=== PATIENT | male | born 1950 ===

== ENCOUNTER 2017-11-29 16:17 | Inpatient (IN) | payer MEDICAID, MEDICARE ==
[2017-11-29] MEDS ORDERED: Magnesium Hydroxide LIQ* 30 ML UDC PO PRN (16:39)
--- NOTE | 2017-11-29 20:51 | HP ---
HISTORY AND PHYSICAL: DATE OF ADMISSION: 11/29/17 PRIMARY CARE PROVIDER: Unknown. CHIEF COMPLAINT: Weakness and altered mental status. HISTORY OF PRESENT ILLNESS: Mr. Dunaway is a 67-year-old male, who has a history of traumatic brain injury, hypertension, seizure disorder, and sleep apnea, who presented numerous times to the [facility] for complaints of weakness and more difficult time walking than usual. He was requiring 1 to 2 people to get out of bed to the chair. The patient during one of the ER visits underwent CT scan of the brain, which did not reveal any acute findings. The patient had a urinalysis sent that was negative. He ultimately was brought back to the emergency room due to concern for persistent weakness. Additionally , new information obtained revealed that the patient had been possibly staring off, not being able to spell his own name which is abnormal, and not playing solitaire which he typically does. Because of these new findings, consultation with Dr. Garcia was done over the phone. He recommended that the patient get seen by Neurology and perhaps have an EEG. I was then contacted for transfer of the patient to [facility]. The patient has been accepted to a medical bed for evaluation of his weakness and altered mental status. PAST MEDICAL HISTORY: 1. History of traumatic brain injury. 2. Hypertension. 3. Sleep apnea. 4. Seizure disorder. PAST SURGICAL HISTORY: 1. History of craniotomy. 2. Gastric tube. 3. ORIF, left hip. MEDICATIONS: Prior to admission: 1. Oxybutynin 10 mg p.o. daily. 2. Lisinopril 5 mg p.o. daily. 3. Trazodone 150 mg p.o. q.h.s. 4. MiraLAX 17 g p.o. daily. 5. Fluoxetine 40 mg p.o. daily. 6. Keppra 750 mg p.o. twice daily. 7. Myrbetriq 25 mg p.o. daily. 8. Flomax 0.4 mg p.o. daily. 9. Aspirin 325 mg p.o. daily. 10. Milk of magnesia 30 mL p.o. daily p.r.n. constipation. 11. Risperdal 0.5 mg p.o. twice daily. 12. Simvastatin 20 mg p.o. daily. 13. Calcium plus D 1 tab p.o. daily. ALLERGIES: None. FAMILY HISTORY: Unobtainable. SOCIAL HISTORY: The patient lives in an apartment with 24-hour care. He is . He does not smoke. He does not drink alcohol. REVIEW OF SYSTEMS: A complete 11-system review of systems is obtained. The pertinent positives and negatives are as per HPI. The patient otherwise states no to all questions. PHYSICAL EXAMINATION GENERAL: The patient is a well-developed, middle-aged male seen sitting up in the bed, in no acute distress. VITAL SIGNS: Pending. HEENT: Pupils are equal and round. Extraocular muscles are intact. Oropharynx is clear. Oral mucosa is moist. The patient wears upper dentures. NECK: There is no submandibular, cervical, or supraclavicular adenopathy. Thyroid is not enlarged and no thyroid nodules are noted. PULMONARY: Lungs are clear to auscultation bilaterally. CARDIAC: Normal S1, S2. Regular rate and rhythm. I did not appreciate any murmurs. ABDOMEN: Bowel sounds are present. Abdomen is soft, nontender, nondistended. MUSCULOSKELETAL: There is no cyanosis or clubbing of the digits. There is full active range of motion of all 4 extremities. PSYCH: The patient is alert. He is not oriented. He essentially answers all questions with the word no. SKIN: Warm and dry. There are no rashes. There are scattered bruises noted. DIAGNOSTIC STUDIES/LAB DATA: Labs from 11/29/17 at [facility]: WBC 6.6, hemoglobin 15.6, hematocrit 43.9, platelets 194. Glucose 109 , BUN 17, creatinine 0.9, sodium 141, potassium 4.4, chloride 108, CO2 of 25, ammonia 14. TSH 1.77. Urinalysis from 11/26/17 is negative for signs of infection, but does reveal specific gravity of greater than 1.030. ASSESSMENT AND PLAN: Mr. Terence Dunaway is a 67-year-old male who was admitted to [facility] with complaints of weakness, and I subsequently obtained information from his aide at home that he had not been acting himself and that he was not playing solitaire like he normally does. He appeared to be staring off into space and could not spell his name which he normally can. The patient was transferred to [facility] for Neurology evaluation. 1. Weakness and altered mental status. This is our first interaction with Mr. Dunaway. His baseline mental status and abilities are unknown to me. He, at this point, appears to be alert. He answers most questions with the word no. He will be observed with neuro checks every 4 hours. He will have seizure precautions and an EEG will be obtained tomorrow. Neurology consultation will be requested for now. He will be maintained on all of his home medications. 2. Hypertension. We will continue the patient on his usual dose of lisinopril. We will adjust his antihypertensive regimen as needed. 3. History of sleep apnea. The patient is not compliant with CPAP. 4. Seizure disorder. The patient will continue on his usual dose of Keppra. 5. Traumatic brain injury. The patient has 24-hour daycare at home. 6. DVT prophylaxis. According to the Adult Thrombosis Prophylaxis Risk Factor Assessment Guide, the patient has a total risk factor score of 3 making him high risk. He will be placed on heparin 5000 units subcutaneous q.8 hours. 7. Code status is full. TIME SPENT: Forty-five minutes was spent admitting this patient, of which greater than half was spent reviewing records from [facility]. [id number]/[facility] #: [id number] GUILLERMO
[2017-11-29] MEDS ORDERED: levETIRAcetam LIQ* 500 MG/5 ML UDC PO SCH (21:00)
[2017-11-29] MEDS ORDERED: traZODone TAB* 50 MG TAB PO SCH (21:00)
[2017-11-29] MEDS: Heparin VIAL(*) 5000 UNITS/ML VIAL (FIVE THOUSAND) SUBCUT SCH (21:09)
[2017-11-29] MEDS: Atorvastatin* 10 MG TAB PO SCH (21:10)
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
[2017-11-30] MEDS: Heparin VIAL(*) 5000 UNITS/ML VIAL (FIVE THOUSAND) SUBCUT SCH ×3 (05:35→22:31)
[2017-11-30] MEDS: Polyethylene Glycol 3350* 17 GM PACKET PO SCH (08:45)
[2017-11-30] MEDS: Oxybutynin XL TAB* 5 MG PO SCH (08:46)
[2017-11-30] MEDS: Aspirin EC TAB* 325 MG PO SCH (08:47)
[2017-11-30] MEDS: FLUoxetine CAP* 20 MG PO SCH (08:47)
[2017-11-30] MEDS: Calcium/Vitamin D TAB 250/125* TAB PO SCH (08:50)
[2017-11-30] MEDS: Tamsulosin CAP* 0.4 MG PO SCH (08:51)
[2017-11-30] MEDS: Lisinopril TAB* 5 MG PO SCH (08:52)
--- NOTE | 2017-11-30 09:00 | PN ---
Subjective Date of Service: 11/30/17 Interval History: Pt is feeling well. He denies any pain. He denies SOB. He states he would like to get up to walk today. Objective Active Medications: Aspirin (Ecotrin Ec Tab*) 325 mg PO DAILY [facility] Last Admin: 11/30/17 08:47 Dose: 325 mg Atorvastatin Calcium (Lipitor*) 10 mg PO BEDTIME [facility] Last Admin: 11/29/17 21:10 Dose: 10 mg Calcium/Vitamin D (Oscal D Tab 250/125*) 1 tab PO DAILY [facility] Last Admin: 11/30/17 08:50 Dose: 1 tab Fluoxetine HCl (Prozac Cap*) 40 mg PO DAILY [facility] Last Admin: 11/30/17 08:47 Dose: 40 mg Heparin Sodium (Porcine) (Heparin Vial(*)) 5,000 units SUBCUT Q8HR [facility] Last Admin: 11/30/17 05:35 Dose: 5,000 units Levetiracetam 750 mg/ Sodium (Chloride) 107.5 mls @ 440 mls/hr IVPB Q8HR [facility] Lisinopril (Prinivil Tab*) 5 mg PO DAILY [facility] Last Admin: 11/30/17 08:52 Dose: 5 mg Lorazepam (Ativan Inj*) 1 mg IV PUSH UC ONCE ONE Stop: 11/30/17 09:16 Magnesium Hydroxide (Milk Of Magnedgar Liq*) 30 ml PO DAILY PRN PRN Reason: CONSTIPATION Oxybutynin Chloride (Ditropan Xl Tab*) 10 mg PO DAILY [facility] Last Admin: 11/30/17 08:46 Dose: 10 mg Polyethylene Glycol/Electrolytes (Miralax*) 17 gm PO DAILY [facility] Last Admin: 11/30/17 08:45 Dose: 17 gm Risperidone (Risperdal) 0.5 mg PO BID [facility] Last Admin: 11/30/17 08:53 Dose: 0.5 mg Tamsulosin HCl (Flomax Cap*) 0.4 mg PO DAILY [facility] Last Admin: 11/30/17 08:51 Dose: 0.4 mg Vital Signs - 8 hr 11/30/17 03:22 Temperature 98.5 F Pulse Rate 80 Respiratory 20 Rate Blood Pressure 132/82 (mmHg) O2 Sat by Pulse 97 Oximetry Oxygen Devices in Use Now: None Appearance: Middle aged male sitting up in bed, NAD Eyes: No Scleral Icterus Ears/Nose/Mouth/Throat: Mucous Membranes Moist Respiratory: Symmetrical Chest Expansion and Respiratory Effort, Clear to Auscultation Cardiovascular: NL Sounds; No Murmurs; No JVD, RRR, No Edema Abdominal: NL Sounds; No Tenderness; No Distention Extremities: No Clubbing, Cyanosis Skin: No Nodules or Sclerosis Neurological: Alert and Oriented x 3 Assess/Plan/Problems-Billing Mr Dunaway is a 67 yo M who has a h/o TBI, seizure disorder and HTN who presented initially to [facility] with c/o weakness and was subsequently transferred to [facility] for neurology evaluation. - Patient Problems (1) Altered mental status Current Visit: Yes Status: Acute Code(s): R41.82 - ALTERED MENTAL STATUS, UNSPECIFIED SNOMED Code(s): 253622611 Comment: Pt reportedly is able to ambulate with a walker, write and play solitare, he has not been doing these activities. EEG done yesterday was abnormal but did not clearly show seizure acitivity. Dr. Garcia has asked that a repeat EEG be obtained. Will continue to hold trazodone and check B12 and trough keppra level (results pending). May need MRI. (2) Seizure disorder Current Visit: Yes Status: Acute Code(s): G40.909 - EPILEPSY, UNSP, NOT INTRACTABLE, WITHOUT STATUS EPILEPTICUS SNOMED Code(s): 290440134 Comment: Continue keppra at current dose for now. Await further recommendations from Dr. Garcia. (3) HTN (hypertension) Current Visit: Yes Status: Acute Code(s): I10 - ESSENTIAL (PRIMARY) HYPERTENSION SNOMED Code(s): 12631940 Comment: BP under good control. Continue lisinopril. (4) DVT prophylaxis Current Visit: Yes Status: Acute Code(s): DQE7020 - SNOMED Code(s): 357355813 Comment: SQ heparin (5) Full code status Current Visit: Yes Status: Acute Code(s): Z78.9 - OTHER SPECIFIED HEALTH STATUS SNOMED Code(s): 101529865
[2017-11-30] MEDS ORDERED: LORazepam INJ* 2 MG/ML 1 ML VIAL IV PUSH ONE (09:15)
[2017-11-30] MEDS: levETIRAcetam IV* 750 MG in NS 0.9% 100 ML* 100 ML IVPB SCH ×2 (10:07→17:00)
--- NOTE | 2017-11-30 17:56 | CONS ---
NEUROLOGY FOLLOWUP NOTE: DATE OF FOLLOWUP: 11/30/17 LOCATION: He is an inpatient in room 439. HOSPITALIST: Roseann Cao DO. CHIEF COMPLAINT: Diminished responsiveness and functional abilities. INTERVAL HISTORY: Since yesterday, Terence had an EEG, which revealed a lot of muscle artifact, but also some central spiking activity, which is quite frequent. Today, I had the EEG reset and he was given 1 mg of Ativan after it had been running. The muscle activity subsided and the spiky activity in the central region resolved. He fell asleep. Currently, he is awake. He did not eat any lunch. He says he feels fine. I asked him if he had been up and walking and he said yes, but he has not been according to the nursing notes. I asked him what his name was and to spell it and he immediately was able to do so , which was one of the historical items that led to his presentation from his apartment where he lives. There is no new laboratory data to review. He has a levetiracetam level and vitamin B12 level pending. MEDICATIONS: Reviewed and he is on: 1. Atorvastatin 10 mg p.o. q. day. 2. Aspirin 81 mg p.o. q. day. 3. Fluoxetine 40 mg p.o. q. day. 4. Heparin 5000 units subcutaneous q.8 hours. 5. Keppra 750 mg IV q.8 hours. 6. Lisinopril 5 mg p.o. q. day. 7. Oxybutynin XL 10 mg p.o. q. day. 8. Risperidone 0.5 mg p.o. b.i.d. 9. Flomax 0.4 mg p.o. q. day. 10. Trazodone was discontinued yesterday. 11. Keppra was switched from oral to IV and the dose increased. PHYSICAL EXAM: He is fairly alert and well hydrated. Temperature 98.5, blood pressure running about 120 to 130 systolic over 70 to 80 diastolic, heart rate is in the 80s and regular. Respiratory rate 20 and oxygen saturation is 96% on room air. Neck is supple. Oral mucosa is moist. Neurologically, pupils react equally from 3.5 to 2.5 mm. Eye movements are full, but there is impersistence of gaze. He responds to visual threat bilaterally. He has slight increased muscle tone in all limbs, but normal strength. He has a little bit of tremulousness in both hands. There is no myoclonus. He only speaks when spoken to. He answers in simple responses. IMPRESSION AND PLAN: Impression is that of probable subclinical ictal activities leading to his decompensation. He seems to be better at least in terms of his ability to spell, but I need further feedback from his caregivers in [place]. Hopefully, there will be somebody in this afternoon to discuss his case. Meanwhile, I am going to continue intravenous Keppra at the current dose and repeat his EEG tomorrow. [id number]/[facility] #: [id number] [facility]
[2017-11-30] MEDS: Atorvastatin* 10 MG TAB PO SCH (22:31)
[2017-12-01] MEDS: levETIRAcetam IV* 750 MG in NS 0.9% 100 ML* 100 ML IVPB SCH ×2 (00:27→09:09)
[2017-12-01] MEDS: Heparin VIAL(*) 5000 UNITS/ML VIAL (FIVE THOUSAND) SUBCUT SCH ×3 (05:08→21:32)
[2017-12-01] MEDS: Lisinopril TAB* 5 MG PO SCH (09:09)
[2017-12-01] MEDS: Polyethylene Glycol 3350* 17 GM PACKET PO SCH (09:10)
[2017-12-01] MEDS: Aspirin EC TAB* 325 MG PO SCH (09:10)
[2017-12-01] MEDS: Tamsulosin CAP* 0.4 MG PO SCH (09:10)
[2017-12-01] MEDS: FLUoxetine CAP* 20 MG PO SCH (09:10)
[2017-12-01] MEDS: Calcium/Vitamin D TAB 250/125* TAB PO SCH (09:11)
[2017-12-01] MEDS: Oxybutynin XL TAB* 5 MG PO SCH (09:11)
[2017-12-01] MEDS ORDERED: Artificial Tears* 15 ML BTL BOTH EYES PRN (14:25)
[2017-12-01] MEDS ORDERED: Carboxymethylcellulos 1% OPTH* 1 DROP AMP BOTH EYES PRN (14:25)
--- NOTE | 2017-12-01 14:39 | PN ---
Subjective Date of Service: 12/01/17 Interval History: Pt is feeling ok. His caregivers think he is still far from his baseline. He has been noticed to be holding his head and rubbing his eyes. Pt denies pain and SOB. He states he ate lunch. Objective Active Medications: Aspirin (Ecotrin Ec Tab*) 325 mg PO DAILY [facility] Last Admin: 12/01/17 09:10 Dose: 325 mg Atorvastatin Calcium (Lipitor*) 10 mg PO BEDTIME [facility] Last Admin: 11/30/17 22:31 Dose: 10 mg Calcium/Vitamin D (Oscal D Tab 250/125*) 1 tab PO DAILY [facility] Last Admin: 12/01/17 09:11 Dose: 1 tab Fluoxetine HCl (Prozac Cap*) 40 mg PO DAILY [facility] Last Admin: 12/01/17 09:10 Dose: 40 mg Heparin Sodium (Porcine) (Heparin Vial(*)) 5,000 units SUBCUT Q8HR [facility] Last Admin: 12/01/17 05:08 Dose: 5,000 units Levetiracetam 750 mg/ Sodium (Chloride) 107.5 mls @ 440 mls/hr IVPB Q8H [facility] Last Admin: 12/01/17 09:09 Dose: 440 mls/hr Lisinopril (Prinivil Tab*) 5 mg PO DAILY [facility] Last Admin: 12/01/17 09:09 Dose: 5 mg Magnesium Hydroxide (Milk Of Magnesia Liq*) 30 ml PO DAILY PRN PRN Reason: CONSTIPATION Oxybutynin Chloride (Ditropan Xl Tab*) 10 mg PO DAILY [facility] Last Admin: 12/01/17 09:11 Dose: 10 mg Polyethylene Glycol/Electrolytes (Miralax*) 17 gm PO DAILY [facility] Last Admin: 12/01/17 09:10 Dose: 17 gm Polyvinyl Alcohol (Polyvinyl Alcohol 1.4% Opth*) 1 drop BOTH EYES Q2H PRN PRN Reason: DRY EYE Risperidone (Risperdal) 0.5 mg PO BID [facility] Last Admin: 12/01/17 09:11 Dose: 0.5 mg Tamsulosin HCl (Flomax Cap*) 0.4 mg PO DAILY [facility] Last Admin: 12/01/17 09:10 Dose: 0.4 mg Vital Signs - 8 hr 12/01/17 12/01/17 12/01/17 07:51 08:00 11:59 Temperature 98.4 F 97.5 F Pulse Rate 68 84 Respiratory 20 20 18 Rate Blood Pressure 119/82 104/66 (mmHg) O2 Sat by Pulse 95 96 Oximetry Oxygen Devices in Use Now: None Appearance: Middle aged male sitting in a chair, NAD Eyes: No Scleral Icterus, - - conjunctiva appear irritated Ears/Nose/Mouth/Throat: Mucous Membranes Moist Respiratory: Symmetrical Chest Expansion and Respiratory Effort, Clear to Auscultation Cardiovascular: NL Sounds; No Murmurs; No JVD, RRR, No Edema Abdominal: NL Sounds; No Tenderness; No Distention Extremities: No Clubbing, Cyanosis Skin: No Nodules or Sclerosis Neurological: Alert and Oriented x 3 Assess/Plan/Problems-Billing Mr Dunaway is a 67 yo M who has a h/o TBI, seizure disorder and HTN who presented initially to [facility] with c/o weakness and was subsequently transferred to [facility] for neurology evaluation. - Patient Problems (1) Altered mental status Current Visit: Yes Status: Acute Code(s): R41.82 - ALTERED MENTAL STATUS, UNSPECIFIED SNOMED Code(s): 534501478 Comment: Pt still far from baseline. Repeat EEG yesterday improved with administration of ativan. ? subclinical seizures. Continue keppra 750mg IV BID. Await further recommendations from Dr. Garcia. (2) Seizure disorder Current Visit: Yes Status: Acute Code(s): G40.909 - EPILEPSY, UNSP, NOT INTRACTABLE, WITHOUT STATUS EPILEPTICUS SNOMED Code(s): 611193063 Comment: Continue keppra at current dose for now. Await further recommendations from Dr. Garcia. (3) HTN (hypertension) Current Visit: Yes Status: Acute Code(s): I10 - ESSENTIAL (PRIMARY) HYPERTENSION SNOMED Code(s): 33190113 Comment: BP under good control. Continue lisinopril. (4) DVT prophylaxis Current Visit: Yes Status: Acute Code(s): SUA9456 - SNOMED Code(s): 533377583 Comment: SQ heparin (5) Full code status Current Visit: Yes Status: Acute Code(s): Z78.9 - OTHER SPECIFIED HEALTH STATUS SNOMED Code(s): 497620411
[2017-12-01] MEDS: levETIRAcetam IV* 1,000 MG in NS 0.9% 100 ML* 100 ML IVPB SCH (16:51)
[2017-12-01] MEDS: Atorvastatin* 10 MG TAB PO SCH (21:32)
--- NOTE | 2017-12-01 21:56 | CONS ---
NEUROLOGY FOLLOWUP NOTE: DATE OF FOLLOWUP: 12/01/17 LOCATION: He is an inpatient in room 411. HOSPITALIST: Dr. Cao. CHIEF COMPLAINT: Seizures, traumatic brain injury. INTERVAL HISTORY: Since yesterday, Terence has not had any clinical seizures but continues to fluctuate in his ability to function. He was able to walk with assistance according to his nurse earlier including a gait belt and a walker. At another time, he got up from the chair and walked to his bed on his own to get into it. He has been variable in his ability to respond cognitively. I spoke with nurses who visited from [place] who take care of him in his supervised apartment setting. They say he is cognitively not near his baseline that he was about a week or 2 weeks ago. MEDICATIONS: Reviewed and he remains on: 1. Levetiracetam 750 mg IV q.8 hours. 2. Lisinopril 5 mg p.o. daily. 3. Risperdal 0.5 mg p.o. b.i.d. 4. Flomax 0.4 mg p.o. daily. 5. Oxybutynin XL 10 mg p.o. daily. 6. Heparin subcutaneous 5000 units q.8 hours. 7. Fluoxetine 40 mg p.o. daily. 8. Atorvastatin 10 mg p.o. q.h.s. 9. Aspirin 325 mg p.o. daily. PHYSICAL EXAMINATION: On exam, he remains afebrile, blood pressure 104/66, heart rate in the 80s, respiratory rate 18, oxygen saturation 96% on room air. He is alert and responds with a slight delay. When asked how he feels, he says "how do you want me to feel." He is oriented to person and place, although earlier he thought he was in [place]. He continues to have a little bit of myoclonus in the fingers. I did not attempt to walk him. LABORATORY DATA: Notable for a levetiracetam level of 13.7 on 11/30/17 at 7:15 in the morning. Vitamin B12 level yesterday was 445. 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 I am going to repeat his EEG tomorrow and increase his Keppra to 1000 mg q.8 hours as of now. If his EEG still shows epileptiform activity tomorrow, I may add Vimpat. [id number]/[facility] #: [id number] MTDD
[2017-12-02] MEDS: levETIRAcetam IV* 1,000 MG in NS 0.9% 100 ML* 100 ML IVPB SCH ×2 (00:12→08:27)
--- NOTE | 2017-12-02 05:08 | EEG ---
ELECTROENCEPHALOGRAM: DATE OF STUDY: 11/29/17 REFERRING PHYSICIAN: Dr. Garcia. LOCATION: He is an inpatient in room 439. CLINICAL HISTORY: History of bilateral subdural hematomas and traumatic brain injury. The patient has had a marked change in ability to function for about a week prior to this recording. MEDICATIONS: Include Keppra, risperidone, trazodone, fluoxetine, lisinopril, oxybutynin, tamsulosin. REPORT: This 16-channel EEG is remarkable for background rhythms consisting of central mixed theta and alpha activity. There is intermingled spikes seen centrally through most of the recording. Bitemporal and parasagittal regions are very poorly seen because of continuous muscle artifact. The patient does not seem to be able to relax during the recording. Activation procedures are not attempted. There are no evidence of sleep stages. CLINICAL IMPRESSION: Abnormal EEG, which is a very limited study due to excessive muscle artifact. Central rhythms are slow and disorganized with the awake state and there is a frequent spike discharges suggestive of frequent epileptiform discharges. [id number]/[facility] #: [id number] GUILLERMO
[2017-12-02] MEDS: Heparin VIAL(*) 5000 UNITS/ML VIAL (FIVE THOUSAND) SUBCUT SCH ×3 (05:50→21:25)
[2017-12-02] MEDS: Aspirin EC TAB* 325 MG PO SCH (08:27)
[2017-12-02] MEDS: FLUoxetine CAP* 20 MG PO SCH (08:27)
[2017-12-02] MEDS: Lisinopril TAB* 5 MG PO SCH (08:27)
[2017-12-02] MEDS: Polyethylene Glycol 3350* 17 GM PACKET PO SCH (08:27)
[2017-12-02] MEDS: Tamsulosin CAP* 0.4 MG PO SCH (08:28)
[2017-12-02] MEDS: Calcium/Vitamin D TAB 250/125* TAB PO SCH (08:28)
[2017-12-02] MEDS: Oxybutynin XL TAB* 5 MG PO SCH (08:36)
--- NOTE | 2017-12-02 17:11 | PN ---
Hospitalist Progress Note Date of Service: 12/02/17 I spoke with Terence's Ximena and updated her on everything that has happened this admission. She is appreciative of the update. She is open to him going to STR if deemed reasonable by PT.
--- NOTE | 2017-12-02 18:10 | PN ---
Subjective Date of Service: 12/02/17 Interval History: No overnight events. Sleepy this mrrayshawn. No complaints. He knows he is in the hospital but doesn't remember why. Objective Active Medications: Aspirin (Ecotrin Ec Tab*) 325 mg PO DAILY [facility] Last Admin: 12/02/17 08:27 Dose: 325 mg Atorvastatin Calcium (Lipitor*) 10 mg PO BEDTIME [facility] Last Admin: 12/01/17 21:32 Dose: 10 mg Calcium/Vitamin D (Oscal D Tab 250/125*) 1 tab PO DAILY [facility] Last Admin: 12/02/17 08:28 Dose: 1 tab Carboxymethylcellulose Sodium (Celluvisc 1% Opth*) 1 drop BOTH EYES Q2H PRN PRN Reason: DRY EYES Fluoxetine HCl (Prozac Cap*) 40 mg PO DAILY [facility] Last Admin: 12/02/17 08:27 Dose: 40 mg Heparin Sodium (Porcine) (Heparin Vial(*)) 5,000 units SUBCUT Q8HR [facility] Last Admin: 12/02/17 15:46 Dose: 5,000 units Levetiracetam (Keppra Tab*) 1,500 mg PO BID [facility] Lisinopril (Prinivil Tab*) 5 mg PO DAILY [facility] Last Admin: 12/02/17 08:27 Dose: 5 mg Magnesium Hydroxide (Milk Of Magnesia Liq*) 30 ml PO DAILY PRN PRN Reason: CONSTIPATION Oxybutynin Chloride (Ditropan Xl Tab*) 10 mg PO DAILY [facility] Last Admin: 12/02/17 08:36 Dose: 10 mg Polyethylene Glycol/Electrolytes (Miralax*) 17 gm PO DAILY [facility] Last Admin: 12/02/17 08:27 Dose: 17 gm Tamsulosin HCl (Flomax Cap*) 0.4 mg PO DAILY [facility] Last Admin: 12/02/17 08:28 Dose: 0.4 mg Vital Signs - 8 hr 12/02/17 12/02/17 12/02/17 11:36 15:13 15:44 Temperature 98.3 F 98.1 F Pulse Rate 65 76 Respiratory 24 20 Rate Blood Pressure 125/78 84/51 110/62 (mmHg) O2 Sat by Pulse 94 97 Oximetry Oxygen Devices in Use Now: None Appearance: alert, no distress, sleepy Eyes: No Scleral Icterus Ears/Nose/Mouth/Throat: NL Teeth, Lips, Gums Neck: NL Appearance and Movements; NL JVP Respiratory: Symmetrical Chest Expansion and Respiratory Effort, Clear to Auscultation Cardiovascular: NL Sounds; No Murmurs; No JVD, RRR Abdominal: NL Sounds; No Tenderness; No Distention Lymphatic: No Cervical Adenopathy Extremities: No Edema Skin: No Rash or Ulcers Neurological: - - oriented x 2 thinks it is 1981 Assess/Plan/Problems-Billing Mr Dunaway is a 67 yo M who has a h/o TBI, seizure disorder and HTN who presented initially to [facility] with c/o weakness and was subsequently transferred to [facility] for neurology evaluation. - Patient Problems (1) Seizure disorder Current Visit: Yes Status: Acute Code(s): G40.909 - EPILEPSY, UNSP, NOT INTRACTABLE, WITHOUT STATUS EPILEPTICUS SNOMED Code(s): 700107633 Comment: Repeat EEG this morning reportedly improved Case discussed with Dr. Radha may to PO today PT consult for possible rehab (2) Altered mental status Current Visit: Yes Status: Acute Code(s): R41.82 - ALTERED MENTAL STATUS, UNSPECIFIED SNOMED Code(s): 071922532 Comment: Likely related to postictal state from having subclinical seizures for some time Seems to be improving (3) Full code status Current Visit: Yes Status: Acute Code(s): Z78.9 - OTHER SPECIFIED HEALTH STATUS SNOMED Code(s): 043757130 (4) HTN (hypertension) Current Visit: Yes Status: Acute Code(s): I10 - ESSENTIAL (PRIMARY) HYPERTENSION SNOMED Code(s): 58817801 Comment: BP under good control. Continue lisinopril.
[2017-12-02] MEDS: levETIRAcetam TAB* 500 MG PO SCH (21:22)
[2017-12-02] MEDS: Atorvastatin* 10 MG TAB PO SCH (21:22)
--- NOTE | 2017-12-03 03:33 | EEG ---
ELECTROENCEPHALOGRAPHY: DATE OF STUDY: 12/01/17 LOCATION: He is an inpatient in room 411. REFERRING PHYSICIAN: Dr. Garcia. CLINICAL PROBLEM: Traumatic brain injury, epilepsy. MEDICATIONS: Include: 1. Keppra. 2. Atorvastatin. 3. Aspirin. 4. Fluoxetine. 5. Oxybutynin. REPORT: This 16-channel EEG is remarkable for background rhythms consisting of diffuse slow voltage fast rhythms particularly bifrontally and bitemporally. Rhythms in the theta and alpha range are seen parasagittally and centrally. The patient is clinically awake, but drowsy. Activation procedures are not attempted. The patient may drowse with an increase in central and bitemporal slowing, but stigmata of stage 2 sleep are not clearly seen. A very few central spikes noted, but no phase reversals or clearly formed epileptiform features. CLINICAL IMPRESSION: Abnormal EEG due to some disorganization of background rhythms. There are no epileptiform features to this recording and the frequent central spike seen in early recordings is no longer present. [id number]/[facility] #: [id number] M[facility] IMOGENE BASSETT HOSPITALJazmyn
[2017-12-03] MEDS: Heparin VIAL(*) 5000 UNITS/ML VIAL (FIVE THOUSAND) SUBCUT SCH ×3 (05:56→21:37)
--- NOTE | 2017-12-03 08:36 | PN ---
Subjective Date of Service: 12/03/17 Interval History: No overnight events noted by RN. When asked how he is feeling this morning, he says "how do you want me to feel?" He denies pain. He wants breakfast. Objective Active Medications: Aspirin (Ecotrin Ec Tab*) 325 mg PO DAILY [facility] Last Admin: 12/02/17 08:27 Dose: 325 mg Atorvastatin Calcium (Lipitor*) 10 mg PO BEDTIME [facility] Last Admin: 12/02/17 21:22 Dose: 10 mg Calcium/Vitamin D (Oscal D Tab 250/125*) 1 tab PO DAILY [facility] Last Admin: 12/02/17 08:28 Dose: 1 tab Carboxymethylcellulose Sodium (Celluvisc 1% Opth*) 1 drop BOTH EYES Q2H PRN PRN Reason: DRY EYES Fluoxetine HCl (Prozac Cap*) 40 mg PO DAILY [facility] Last Admin: 12/02/17 08:27 Dose: 40 mg Heparin Sodium (Porcine) (Heparin Vial(*)) 5,000 units SUBCUT Q8HR [facility] Last Admin: 12/03/17 05:56 Dose: 5,000 units Levetiracetam (Keppra Tab*) 1,500 mg PO BID [facility] Last Admin: 12/02/17 21:22 Dose: 1,500 mg Lisinopril (Prinivil Tab*) 5 mg PO DAILY [facility] Last Admin: 12/02/17 08:27 Dose: 5 mg Magnesium Hydroxide (Milk Of Magnesia Liq*) 30 ml PO DAILY PRN PRN Reason: CONSTIPATION Oxybutynin Chloride (Ditropan Xl Tab*) 10 mg PO DAILY [facility] Last Admin: 12/02/17 08:36 Dose: 10 mg Polyethylene Glycol/Electrolytes (Miralax*) 17 gm PO DAILY [facility] Last Admin: 12/02/17 08:27 Dose: 17 gm Tamsulosin HCl (Flomax Cap*) 0.4 mg PO DAILY [facility] Last Admin: 12/02/17 08:28 Dose: 0.4 mg Vital Signs - 8 hr 12/03/17 03:43 Temperature 98.4 F Pulse Rate 65 Respiratory 16 Rate Blood Pressure 133/61 (mmHg) O2 Sat by Pulse 98 Oximetry Oxygen Devices in Use Now: None Appearance: alert, sleepy, easily confused Eyes: No Scleral Icterus, - - conjunctivae injected Ears/Nose/Mouth/Throat: NL Teeth, Lips, Gums Neck: NL Appearance and Movements; NL JVP Respiratory: Symmetrical Chest Expansion and Respiratory Effort, Clear to Auscultation Cardiovascular: NL Sounds; No Murmurs; No JVD Abdominal: NL Sounds; No Tenderness; No Distention Lymphatic: No Cervical Adenopathy Extremities: No Edema Skin: No Rash or Ulcers Neurological: - - oriented to person and time, thinks he is in [place]. can count to 10 but cannot count backwards. follows simple commands but cannot follow complex commands. Assess/Plan/Problems-Billing Mr Dnuaway is a 67 yo M who has a h/o TBI, seizure disorder and HTN who presented initially to [facility] with c/o weakness and was subsequently transferred to [facility] for neurology evaluation. - Patient Problems (1) Seizure disorder Current Visit: Yes Status: Acute Code(s): G40.909 - EPILEPSY, UNSP, NOT INTRACTABLE, WITHOUT STATUS EPILEPTICUS SNOMED Code(s): 427585041 Comment: Repeat EEG yesterday reportedly improved Case discussed with Dr. Garcia Switched to PO keppra, tolerating well Awaiting PT consult for possible STR prior to returning to [facility] (2) Altered mental status Current Visit: Yes Status: Acute Code(s): R41.82 - ALTERED MENTAL STATUS, UNSPECIFIED SNOMED Code(s): 131571659 Comment: Likely related to postictal state from having subclinical seizures for some time Seems to be improving (3) Full code status Current Visit: Yes Status: Acute Code(s): Z78.9 - OTHER SPECIFIED HEALTH STATUS SNOMED Code(s): 860201812 (4) HTN (hypertension) Current Visit: Yes Status: Acute Code(s): I10 - ESSENTIAL (PRIMARY) HYPERTENSION SNOMED Code(s): 44526615 Comment: BP under good control. Continue lisinopril.
[2017-12-03] MEDS: levETIRAcetam TAB* 500 MG PO SCH ×2 (10:14→21:36)
[2017-12-03] MEDS: Oxybutynin XL TAB* 5 MG PO SCH (10:15)
[2017-12-03] MEDS: FLUoxetine CAP* 20 MG PO SCH (10:16)
[2017-12-03] MEDS: Aspirin EC TAB* 325 MG PO SCH (10:16)
[2017-12-03] MEDS: Lisinopril TAB* 5 MG PO SCH (10:16)
[2017-12-03] MEDS: Calcium/Vitamin D TAB 250/125* TAB PO SCH (10:17)
[2017-12-03] MEDS: Tamsulosin CAP* 0.4 MG PO SCH (10:20)
[2017-12-03] MEDS: Polyethylene Glycol 3350* 17 GM PACKET PO SCH (10:20)
--- NOTE | 2017-12-03 19:34 | PN ---
Progress Note - Progress Note Date of Service: 12/03/17 SOAP: Neurology progress note Date of service: 12/03/17 Subjective: The patient had no further seizures. His mental status has been improving. Objective: Vital Signs Temp Pulse Resp BP Pulse Ox 97.8 F 60 18 110/68 99 12/03/17 15:22 12/03/17 15:22 12/03/17 15:22 12/03/17 15:22 12/03/17 15:22 Current Medications Aspirin (Ecotrin Ec Tab*) 325 mg PO DAILY [facility] Last Admin: 12/03/17 10:16 Dose: 325 mg Atorvastatin Calcium (Lipitor*) 10 mg PO BEDTIME [facility] Last Admin: 12/02/17 21:22 Dose: 10 mg Calcium/Vitamin D (Oscal D Tab 250/125*) 1 tab PO DAILY [facility] Last Admin: 12/03/17 10:17 Dose: 1 tab Carboxymethylcellulose Sodium (Celluvisc 1% Opth*) 1 drop BOTH EYES Q2H PRN PRN Reason: DRY EYES Fluoxetine HCl (Prozac Cap*) 40 mg PO DAILY [facility] Last Admin: 12/03/17 10:16 Dose: 40 mg Heparin Sodium (Porcine) (Heparin Vial(*)) 5,000 units SUBCUT Q8HR [facility] Last Admin: 12/03/17 15:09 Dose: 5,000 units Levetiracetam (Keppra Tab*) 1,500 mg PO BID [facility] Last Admin: 12/03/17 10:14 Dose: 1,500 mg Lisinopril (Prinivil Tab*) 5 mg PO DAILY [facility] Last Admin: 12/03/17 10:16 Dose: 5 mg Magnesium Hydroxide (Milk Of Magnesia Liq*) 30 ml PO DAILY PRN PRN Reason: CONSTIPATION Oxybutynin Chloride (Ditropan Xl Tab*) 10 mg PO DAILY [facility] Last Admin: 12/03/17 10:15 Dose: 10 mg Polyethylene Glycol/Electrolytes (Miralax*) 17 gm PO DAILY [facility] Last Admin: 12/03/17 10:20 Dose: 17 gm Tamsulosin HCl (Flomax Cap*) 0.4 mg PO DAILY [facility] Last Admin: 12/03/17 10:20 Dose: 0.4 mg Laboratory Last Values Vitamin B12 445 pg/mL (180-914) 11/30/17 07:15 Levetiracetam 13.7 mcg/mL 11/30/17 07:15 Neurological exam: Alert and oriented to date by 1 day error (December 02), knows he is in [place] in a hospital but does not know the name. Pupils symmetric and reactive to light. Extraocular movements intact with no nystagmus. Face symmetric, tongue is in midline Muscle tone and bulk normal, motor strength 5/5 throughout No resting or positional tremor. Assessment and plan: 67-year-old male with history of TBI and epilepsy, admitted for AMS, probably related to uncontrolled/subclinical seizures. He is tolerating the current dose of PO Keppra and his mental status is improving. Continue the current dose of keppra; serum level in a reasonable range.
[2017-12-03] MEDS: Atorvastatin* 10 MG TAB PO SCH (21:36)
[2017-12-04] MEDS: Heparin VIAL(*) 5000 UNITS/ML VIAL (FIVE THOUSAND) SUBCUT SCH ×3 (05:29→20:37)
[2017-12-04] MEDS: Aspirin EC TAB* 325 MG PO SCH (08:17)
[2017-12-04] MEDS: levETIRAcetam TAB* 500 MG PO SCH ×2 (08:17→20:37)
[2017-12-04] MEDS: Calcium/Vitamin D TAB 250/125* TAB PO SCH (08:17)
[2017-12-04] MEDS: FLUoxetine CAP* 20 MG PO SCH (08:18)
[2017-12-04] MEDS: Oxybutynin XL TAB* 5 MG PO SCH (08:18)
[2017-12-04] MEDS: Lisinopril TAB* 5 MG PO SCH (08:18)
[2017-12-04] MEDS: Polyethylene Glycol 3350* 17 GM PACKET PO SCH (08:18)
[2017-12-04] MEDS: Tamsulosin CAP* 0.4 MG PO SCH (08:18)
--- NOTE | 2017-12-04 09:41 | PN ---
Subjective Date of Service: 12/04/17 Objective Active Medications: Aspirin (Ecotrin Ec Tab*) 325 mg PO DAILY [facility] Atorvastatin Calcium (Lipitor*) 10 mg PO BEDTIME [facility] Calcium/Vitamin D (Oscal D Tab 250/125*) 1 tab PO DAILY [facility] Carboxymethylcellulose Sodium (Celluvisc 1% Opth*) 1 drop BOTH EYES Q2H PRN Fluoxetine HCl (Prozac Cap*) 40 mg PO DAILY [facility] Heparin Sodium (Porcine) (Heparin Vial(*)) 5,000 units SUBCUT Q8HR [facility] Levetiracetam (Keppra Tab*) 1,500 mg PO BID [facility] Lisinopril (Prinivil Tab*) 5 mg PO DAILY [facility] Magnesium Hydroxide (Milk Of Magnesia Liq*) 30 ml PO DAILY [facility]N Oxybutynin Chloride (Ditropan Xl Tab*) 10 mg PO DAILY [facility] Polyethylene Glycol/Electrolytes (Miralax*) 17 gm PO DAILY [facility] Tamsulosin HCl (Flomax Cap*) 0.4 mg PO DAILY [facility] Vital Signs: Temp Pulse Resp BP Pulse Ox 98.4 F 105 18 120/82 98 12/04/17 07:54 12/04/17 07:54 12/04/17 07:54 12/04/17 07:54 12/04/17 07:54 Oxygen Devices in Use Now: None Assess/Plan/Problems-Billing Assessment: Mr Dunaway is a 67 yo M who has a h/o TBI, seizure disorder and HTN who presented initially to [facility] with c/o weakness and was subsequently transferred to [facility] [place] for neurology evaluation found to have subclinical seizures. - Patient Problems (1) Seizure disorder Comment: - Appreciate neurology consultation. - Repeat EEG reportedly improved. Switched to PO keppra, tolerating well. Awaiting PT consult for possible STR prior to returning to [place] (2) Altered mental status Comment: - Improving. - Likely related to postictal state from having subclinical seizures for some time (3) HTN (hypertension) Comment: - BP under good control. - Continue lisinopril. (4) DVT prophylaxis Comment: SQ heparin (5) Full code status Comment: Status and Disposition: Inpatient. Anticipate discharge to [facility] when medically stable and bed available.
[2017-12-04] MEDS: Carboxymethylcellulos 1% OPTH* 1 DROP AMP BOTH EYES PRN (13:49)
[2017-12-04] MEDS: Atorvastatin* 10 MG TAB PO SCH (20:37)
[2017-12-05] MEDS: Heparin VIAL(*) 5000 UNITS/ML VIAL (FIVE THOUSAND) SUBCUT SCH ×3 (05:38→21:28)
--- NOTE | 2017-12-05 07:39 | PN ---
Subjective Date of Service: 12/05/17 Interval History: Mr. Dunaway denies any complaint today. He specifically denies chest pain, SOB, nausea, or abdominal pain. Objective Active Medications: Aspirin (Ecotrin Ec Tab*) 325 mg PO DAILY [facility] Atorvastatin Calcium (Lipitor*) 10 mg PO BEDTIME [facility] Calcium/Vitamin D (Oscal D Tab 250/125*) 1 tab PO DAILY [facility] Carboxymethylcellulose Sodium (Celluvisc 1% Opth*) 1 drop BOTH EYES Q2H PRN Fluoxetine HCl (Prozac Cap*) 40 mg PO DAILY [facility] Heparin Sodium (Porcine) (Heparin Vial(*)) 5,000 units SUBCUT Q8HR [facility] Levetiracetam (Keppra Tab*) 1,500 mg PO BID [facility] Lisinopril (Prinivil Tab*) 5 mg PO DAILY [facility] Magnesium Hydroxide (Milk Of Magnesia Liq*) 30 ml PO DAILY [facility] Oxybutynin Chloride (Ditropan Xl Tab*) 10 mg PO DAILY [facility] Polyethylene Glycol/Electrolytes (Miralax*) 17 gm PO DAILY [facility] Tamsulosin HCl (Flomax Cap*) 0.4 mg PO DAILY [facility] Vital Signs: Temp Pulse Resp BP Pulse Ox 98.3 F 83 20 125/73 97 12/05/17 08:03 12/05/17 08:03 12/05/17 08:03 12/05/17 08:03 12/05/17 08:03 Oxygen Devices in Use Now: None Appearance: Male sitting up on edge of bed eating breakfast in NAD Eyes: No Scleral Icterus Respiratory: Symmetrical Chest Expansion and Respiratory Effort, Clear to Auscultation Cardiovascular: NL Sounds; No Murmurs; No JVD, No Edema Abdominal: NL Sounds; No Tenderness; No Distention Lymphatic: No Cervical Adenopathy Extremities: No Edema Skin: No Rash or Ulcers Neurological: Alert and Oriented x 3, NL Muscle Strength and Tone Nutrition: Taking PO's Assess/Plan/Problems-Billing Assessment: Mr Dunaway is a 67 yo M who has a h/o TBI, seizure disorder and HTN who presented initially to [facility] with c/o weakness and was subsequently transferred to [facility] for neurology evaluation found to have subclinical seizures. - Patient Problems (1) Seizure disorder Comment: - Appreciate neurology consultation. - Repeat EEG reportedly improved. Switched to PO keppra, tolerating well. (2) Altered mental status Comment: - Resolved. - Likely related to postictal state from having subclinical seizures for some time (3) HTN (hypertension) Comment: - BP under good control. - Continue lisinopril. (4) DVT prophylaxis Comment: SQ heparin (5) Full code status Comment: Status and Disposition: Inpatient. Discharge to [place] tomorrow.
[2017-12-05] MEDS: Oxybutynin XL TAB* 5 MG PO SCH (08:45)
[2017-12-05] MEDS: Tamsulosin CAP* 0.4 MG PO SCH (08:46)
[2017-12-05] MEDS: FLUoxetine CAP* 20 MG PO SCH (08:46)
[2017-12-05] MEDS: Aspirin EC TAB* 325 MG PO SCH (08:46)
[2017-12-05] MEDS: Lisinopril TAB* 5 MG PO SCH (08:46)
[2017-12-05] MEDS: levETIRAcetam TAB* 500 MG PO SCH ×2 (08:46→21:26)
[2017-12-05] MEDS: Polyethylene Glycol 3350* 17 GM PACKET PO SCH (08:47)
[2017-12-05] MEDS: Calcium/Vitamin D TAB 250/125* TAB PO SCH (08:49)
[2017-12-05] MEDS ORDERED: Ciprofloxacin 0.3% OPTH.SOL* 2.5 ML BTL BOTH EYES SCH (13:00)
[2017-12-05] MEDS: Carboxymethylcellulos 1% OPTH* 1 DROP AMP BOTH EYES PRN (14:13)
[2017-12-05] MEDS: Polymyx/Trimethoprim OPTH* 10 ML BTL BOTH EYES SCH ×2 (18:00→21:29)
[2017-12-05] MEDS: Atorvastatin* 10 MG TAB PO SCH (21:27)
--- NOTE | 2017-12-06 04:30 | DS ---
HOSPITAL MEDICINE DISCHARGE SUMMARY: DATE OF ADMISSION: 11/29/17 DATE OF DISCHARGE: 12/06/17 PRIMARY CARE PHYSICIAN: Unknown. ATTENDING PHYSICIAN: Juancho Bruce MD * (dictation provided by Yuliya Rodgers NP) PRIMARY DIAGNOSIS: Subclinical seizure. SECONDARY DIAGNOSES: 1. History of traumatic brain injury. 2. Hypertension. 3. Sleep apnea. 4. Seizure disorder. PAST SURGICAL HISTORY: 1. History of craniotomy. 2. Gastric tube. 3. ORIF, left hip. MEDICATIONS: At the time of discharge are, 1. Keppra 1500 mg p.o. b.i.d. (new dose) 2. Tamsulosin 0.4 mg p.o. daily. 3. Polyethylene glycol 17 g p.o. daily. 4. Ditropan XL 10 mg p.o. daily. 5. Myrbetriq 25 mg p.o. daily. 6. Lisinopril 5 mg p.o. daily. 7. Fluoxetine 40 mg p.o. daily. 8. Aspirin 325 mg p.o. daily. 9. Risperdal 0.5 mg p.o. b.i.d. 10. Simvastatin 20 mg p.o. at bedtime. 11. Calcium carbonate with vitamin D3 one tab p.o. daily. 12. Magnesium hydroxide 30 mL p.o. daily p.r.n. 13. Polymyxin/trimethoprim eye drops 1 drop QID x 5 days. HOSPITAL COURSE: Mr. Dunaway is a 67-year-old male with past medical history of traumatic brain injury and seizure disorder who presented to the hospital on in transfer from [facility] out of concern for altered mental status. Please see the dictated H and P from Roseann Cao DO for complete details. In brief, at the ER at [facility], the patient had a CT brain, which was negative as well as a negative urinalysis. He had persistent weakness and was noted to be staring off into space, not being able to spell his name and not playing solitaire as he normally would. Based on this, he was transferred to our hospital for a neurological consultation. Mr. Dunaway was evaluated by Dr. Garcia from Neurology and underwent an EEG. I refer you to his documentation for complete details, but he suspected that the patient had had ongoing subclinical seizures. He recommended that trazodone be held as it can lower the seizure threshold and also recommended checking Keppra levels. The patient's EEG showed "abnormal EEG, which is very limited study due to excessive muscle artifact, sensory rhythms are slow and disorganized with the awake state and there are frequent spike discharges suggestive of frequent epileptiform discharges." Mr. Dunaway's Keppra dosage was doubled. He had a Keppra level that was 13.7 on 11/30/17. He has been followed by Neurology throughout the hospitalization. It was felt that his altered mental status was reflect of subclinical seizures, which have been responsive to Keppra. Mr. Dunaway is medically stable for discharge back to [place]. He is back to his baseline and moving about the room independently. Of further note, during this hospitalization he patient has developed bilateral conjunctivitis with purulent discharge. I suspect he has bacterial conjunctivitis and I am treating with polymyxin as per above. DISPOSITION: To [place]. DIET: Regular. ACTIVITY: As tolerated. FOLLOWUP PLANS: Please follow up with the providers there per routine. Recommend follow up with neurology within one month. TIME SPENT: Approximately 60 minutes were spent in the discharge of this patient, more than half the time was spent with the patient at the bedside reviewing the events leading up to and during this hospitalization, performing the physical examination, and reviewing the plan of care. YULIYA RODGERS NP [id number]/[facility] #: [id number] GUILLERMO
[2017-12-06] MEDS: Heparin VIAL(*) 5000 UNITS/ML VIAL (FIVE THOUSAND) SUBCUT SCH ×3 (05:13→20:43)
[2017-12-06] MEDS: Oxybutynin XL TAB* 5 MG PO SCH (09:36)
[2017-12-06] MEDS: Lisinopril TAB* 5 MG PO SCH (09:36)
[2017-12-06] MEDS: FLUoxetine CAP* 20 MG PO SCH (09:36)
[2017-12-06] MEDS: levETIRAcetam TAB* 500 MG PO SCH ×2 (09:36→20:42)
[2017-12-06] MEDS: Calcium/Vitamin D TAB 250/125* TAB PO SCH (09:36)
[2017-12-06] MEDS: Aspirin EC TAB* 325 MG PO SCH (09:36)
[2017-12-06] MEDS: Tamsulosin CAP* 0.4 MG PO SCH (09:36)
[2017-12-06] MEDS: Polymyx/Trimethoprim OPTH* 10 ML BTL BOTH EYES SCH ×4 (09:37→20:42)
[2017-12-06] MEDS: Polyethylene Glycol 3350* 17 GM PACKET PO SCH (09:37)
--- NOTE | 2017-12-06 18:18 | PN ---
Hospitalist Progress Note Date of Service: 12/06/17 . dc delayed because of outpatient logistics in care team In the interim, there was a request for repeat EEG because of increased tremor and possibility of focal seizure...EEG ordered...will follow result before dc, intended for Dec 18. D/C to [facility] [place] in [place] Dec 18.
[2017-12-06] MEDS: Atorvastatin* 10 MG TAB PO SCH (20:42)
--- NOTE | 2017-12-07 01:13 | EEG ---
ELECTROENCEPHALOGRAPHY REPORT: DATE OF STUDY: 12/06/17 - ROOM #[id number] DATE READ: 12/06/17 REFERRING PHYSICIAN: Dr. Joaquim Kraft. DURATION OF STUDY: 10:25 a.m. to 10:50 a.m. CLINICAL PROBLEM: Mr. Terence Dunaway is a 67-year-old male with history of epilepsy and who has generalized malaise and staring off spells. This EEG was obtained to evaluate for epileptiform abnormalities and electrographic seizures. MEDICATIONS: 1. Heparin. 2. Atorvastatin. 3. Levetiracetam. 4. Aspirin. 5. Os-Mauro. 6. Lisinopril. 7. Fluoxetine. 8. Oxybutynin. 9. MiraLAX. 10. Tamsulosin. 11. Milk of magnesium. CLINICAL STATE: Awake and drowsy. REPORT: The background consisted of mixed frequency slowing in the delta and theta range with appropriate organization and clearly defined anterior- posterior voltage. There was a waking slow background rhythm of 7 Hz, which was symmetrical and showed normal reactivity. Anteriorly, there was an expected pattern of lower voltage, irregular mixed faster frequencies. Attenuation of the occipital rhythm accompanied drowsiness. Hyperventilation and photic stimulation were not performed. Throughout the recording, there were no epileptiform abnormalities. CLINICAL IMPRESSION: This is an abnormal awake and drowsy EEG due to diffuse slowing. There was normal organization reactivity. These findings are suggestive of mild nonspecific encephalopathy, which can be seen with toxic- metabolic disturbance, cerebral hypertrophy, hypoxic-ischemic encephalopathy, or as a result of sedatives. Clinical correlation is recommended. [id number]/[facility] #: [id number] [facility]
[2017-12-07] MEDS: Heparin VIAL(*) 5000 UNITS/ML VIAL (FIVE THOUSAND) SUBCUT SCH (05:39)
--- NOTE | 2017-12-07 08:27 | PN ---
Subjective Date of Service: 12/07/17 Interval History: Pt states he is feeling well. He denies any pain. No SOB. Objective Active Medications: Aspirin (Ecotrin Ec Tab*) 325 mg PO DAILY [facility] Last Admin: 12/06/17 09:36 Dose: 325 mg Atorvastatin Calcium (Lipitor*) 10 mg PO BEDTIME [facility] Last Admin: 12/06/17 20:42 Dose: 10 mg Calcium/Vitamin D (Oscal D Tab 250/125*) 1 tab PO DAILY [facility] Last Admin: 12/06/17 09:36 Dose: 1 tab Carboxymethylcellulose Sodium (Celluvisc 1% Opth*) 1 drop BOTH EYES Q2H PRN PRN Reason: DRY EYES Last Admin: 12/05/17 14:13 Dose: 1 drop Fluoxetine HCl (Prozac Cap*) 40 mg PO DAILY [facility] Last Admin: 12/06/17 09:36 Dose: 40 mg Heparin Sodium (Porcine) (Heparin Vial(*)) 5,000 units SUBCUT Q8HR [facility] Last Admin: 12/07/17 05:39 Dose: 5,000 units Levetiracetam (Keppra Tab*) 1,500 mg PO BID [facility] Last Admin: 12/06/17 20:42 Dose: 1,500 mg Lisinopril (Prinivil Tab*) 5 mg PO DAILY [facility] Last Admin: 12/06/17 09:36 Dose: 5 mg Magnesium Hydroxide (Milk Of Magnesia Liq*) 30 ml PO DAILY PRN PRN Reason: CONSTIPATION Oxybutynin Chloride (Ditropan Xl Tab*) 10 mg PO DAILY [facility] Last Admin: 12/06/17 09:36 Dose: 10 mg Polyethylene Glycol/Electrolytes (Miralax*) 17 gm PO DAILY [facility] Last Admin: 12/06/17 09:37 Dose: 17 gm Polymyxin/Trimethoprim Sulfate (Polytrim Ophth*) 1 drop BOTH EYES QID [facility] Last Admin: 12/06/17 20:42 Dose: 1 drop Tamsulosin HCl (Flomax Cap*) 0.4 mg PO DAILY [facility] Last Admin: 12/06/17 09:36 Dose: 0.4 mg Vital Signs - 8 hr 12/07/17 03:25 Temperature 98.3 F Pulse Rate 83 Respiratory 18 Rate Blood Pressure 130/71 (mmHg) O2 Sat by Pulse 97 Oximetry Oxygen Devices in Use Now: None Appearance: Middle aged male lying in bed, NAD Eyes: No Scleral Icterus Ears/Nose/Mouth/Throat: Mucous Membranes Moist Respiratory: Symmetrical Chest Expansion and Respiratory Effort, Clear to Auscultation Cardiovascular: NL Sounds; No Murmurs; No JVD, RRR, No Edema Abdominal: NL Sounds; No Tenderness; No Distention Extremities: No Clubbing, Cyanosis Skin: No Nodules or Sclerosis Neurological: - - alert, slow to respond to questions Assess/Plan/Problems-Billing Assessment: Mr Dunaway is a 67 yo M who has a h/o TBI, seizure disorder and HTN who presented initially to [facility] with c/o weakness and was subsequently transferred to [facility] for neurology evaluation found to have subclinical seizures. - Patient Problems (1) Altered mental status Current Visit: Yes Status: Acute Code(s): R41.82 - ALTERED MENTAL STATUS, UNSPECIFIED SNOMED Code(s): 023210465 Comment: Reportedly resolved. AMS secondary to prolonged subclinical seizures. (2) Seizure disorder Current Visit: Yes Status: Acute Code(s): G40.909 - EPILEPSY, UNSP, NOT INTRACTABLE, WITHOUT STATUS EPILEPTICUS SNOMED Code(s): 484448039 Comment: EEG repeated yesterday as pt was found lip smacking. EEG abnormal but no epileptiform discharges noted. Continue keppra 1500mg BID. (3) HTN (hypertension) Current Visit: Yes Status: Acute Code(s): I10 - ESSENTIAL (PRIMARY) HYPERTENSION SNOMED Code(s): 53289004 Comment: BP under good control. Continue lisinopril at home dose. (4) DVT prophylaxis Current Visit: Yes Status: Acute Code(s): YYN0454 - SNOMED Code(s): 775362528 Comment: SQ heparin (5) Full code status Current Visit: Yes Status: Acute Code(s): Z78.9 - OTHER SPECIFIED HEALTH STATUS SNOMED Code(s): 960854421 Comment: Status and Disposition: d/c home today
[2017-12-07 08:55] VITALS: BP 128/65
[2017-12-07] MEDS: Lisinopril TAB* 5 MG PO SCH (09:27)
[2017-12-07] MEDS: Aspirin EC TAB* 325 MG PO SCH (09:27)
[2017-12-07] MEDS: Polyethylene Glycol 3350* 17 GM PACKET PO SCH (09:27)
[2017-12-07] MEDS: Tamsulosin CAP* 0.4 MG PO SCH (09:27)
[2017-12-07] MEDS: levETIRAcetam TAB* 500 MG PO SCH (09:27)
[2017-12-07] MEDS: Calcium/Vitamin D TAB 250/125* TAB PO SCH (09:28)
[2017-12-07] MEDS: FLUoxetine CAP* 20 MG PO SCH (09:28)
[2017-12-07] MEDS: Oxybutynin XL TAB* 5 MG PO SCH (09:42)
[2017-12-07] MEDS: Polymyx/Trimethoprim OPTH* 10 ML BTL BOTH EYES SCH (09:42)
--- NOTE | 2017-12-07 10:22 | DS ---
DISCHARGE SUMMARY: DATE OF ADMISSION: 11/29/17 DATE OF DISCHARGE: 12/07/17 ADDENDUM: Addendum to the discharge summary dictated by Yuliya Rodgers. Diagnoses remain unchanged from the discharge summary dictated by Yuliya Rodgers NP. On 12/06/17, however, the patient was noted to have lip-smacking. Because of this, his anticipated discharge for 12/06/17 was cancelled. Ultimately, EEG was performed, which was reported to be abnormal, but had no epileptiform discharges. The patient will continue on Keppra 1500 mg p.o. twice daily, which is an increased dose as well as his usual medications. Of note, the patient's trazodone was discontinued earlier during the hospitalization as it can reduce seizure threshold. The rest of his home medications have been continued. The patient has been up and walking to the bathroom without any difficulty. He appears to be responding appropriately to questions and at this point is stable for discharge home. TIME SPENT: Twenty minutes were spent on this discharge. [id number]/[facility] #: [id number] GUILLERMO
== END 2017-12-07 11:20 | disposition home or self-care (01) | DRG 101 ==
LOC: MEDTELE 16:28 → MED 12-01 00:06
PROVIDERS: ADMIT Hospitalist; ATTEND Hospitalist
DX: G40.802 Other epilepsy, not intractable, without status epilepticus (principal); I10 Essential (primary) hypertension; G47.30 Sleep apnea, unspecified; H10.9 Unspecified conjunctivitis; Z87.820 Personal history of traumatic brain injury; Z79.82 Long term (current) use of aspirin; Z79.899 Other long term (current) drug therapy
CPT/HCPCS: 36415; 80177; 82607; 95816; 95819; A9270-GY; G8978-GP-CI; G8979-GP-CI; G8980-GP-CI; G8987-GO-CL; G8988-GO-CL; G8989-GO-CL; J1644; J2060